=== PATIENT | female | born 1955 | race Asian ===

== ENCOUNTER 2018-08-14 10:34 | Emergency (ER) | payer OTHER ==
[~2018-08-14] VITALS: Ht 160 cm; Wt 73.6 kg
[2018-08-14] MEDS ORDERED: HYDR-3110 PO (10:42)
[2018-08-14] MEDS ORDERED: SIMV-261 PO (10:42)
[2018-08-14] MEDS ORDERED: ACETAMINOPHEN 500 MG TABLET PO ONE (11:15)
[2018-08-14 11:37] LABS: INFLUENZA TYPE A POSITIVE FOR TYPE A (NEGATIVE); INFLUENZA TYPE B NEGATIVE FOR TYPE B (NEGATIVE)
[2018-08-14] MEDS ORDERED: OSELTAMIVIR PHOSPHATE 75 MG CAPSULE PO ONE (13:00)
[2018-08-14 14:45] VITALS: BP 141/81
== END 2018-08-14 14:47 | disposition home or self-care (01) ==
LOC: EMS 10:35
DX: J11.1 Influenza due to unidentified influenza virus with other respiratory manifestations (principal); M79.10 Myalgia, unspecified site; E78.00 Pure hypercholesterolemia, unspecified; F17.210 Nicotine dependence, cigarettes, uncomplicated
CPT/HCPCS: 87804